=== PATIENT | female | born 1955 | race Caucasian/White ===

== ENCOUNTER → 2021-12-10 | Day surgery (SDC) | payer MEDICARE, OTHER ==
[~2021-12-10] VITALS: Ht 167.6 cm; Wt 69.0 kg
[~2021-12-10] MED LIST: 24HOUR ALLERGY10 MG PO; LEXAPRO20 MG PO; PROLIA60 MG/1 ML SC
== END | disposition home or self-care (01) ==
LOC: FAS 07:46
DX: Z12.11 Encounter for screening for malignant neoplasm of colon (principal); K62.1 Rectal polyp; M81.0 Age-related osteoporosis without current pathological fracture; K21.9 Gastro-esophageal reflux disease without esophagitis; Z79.899 Other long term (current) drug therapy
CPT/HCPCS: J2250; J2704; J7120